=== PATIENT | female | born 1995 | race Caucasian/White ===

== ENCOUNTER 2025-03-01 23:36 | Emergency (ER) | payer MEDICAID ==
[~2025-03-01] VITALS: Ht 157.5 cm; Wt 59.0 kg
[2025-03-01 23:49] VITALS: BP 121/81; TEMP 98.5; O2SAT 99
== END 2025-03-02 01:16 | disposition left against medical advice (07) ==
LOC: ER 03-02
DX: S09.90XA Unspecified injury of head, initial encounter (principal); Z53.21 Procedure and treatment not carried out due to patient leaving prior to being seen by health care provider; X58.XXXA Exposure to other specified factors, initial encounter; Y93.89 Activity, other specified; Y92.89 Other specified places as the place of occurrence of the external cause; Y99.8 Other external cause status